=== PATIENT | female | born 2005 | race Caucasian/White ===

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

== ENCOUNTER 2024-11-21 10:34 | Emergency (ER) | payer BC, SELFPAY ==
[2024-11-21 10:38] VITALS: BP 136/96; PULSE 120; RESP 14; TEMP 36.6; O2SAT 95; BMI 18.8
[2024-11-21 11:29] LABS: Add Manual Diff / Slide Review NO; Basophils Absolute Auto 100 /uL (0-100); Basophils Percent Auto 1.3 % (0-2); Eosinophils Absolute Auto 0 /uL (0-450); Eosinophils Percent Auto 0.2 % (2-4); Hematocrit 46.8 % (36-46); Hemoglobin 16.2 g/dL (12.0-16.0); Lymphocytes Absolute Auto 2300 /uL (1100-4500); Lymphocytes Percent Auto 27.5 % (25-40); Mean Corpuscular HGB Conc 34.7 % (30-36); Mean Corpuscular Hemoglobin 30.9 PG (26-34); Monocytes Absolute Auto 600 /uL (0-900); Monocytes Percent Auto 7.4 % (3-14); Neutrophils Absolute Auto 5300 /uL (1500-7000); Neutrophils Percent Auto 63.6 % (50-75); Platelet Count 356 X10^3/uL (150-400); Red Blood Cell Count 5.26 X10^6/uL (4.0-5.2); Red Cell Distribution Width 12.1 % (11.6-14.8); White Blood Cell Count 8.3 X10^3/uL (4.5-11.0)
[2024-11-21 11:42] LABS: Acetaminophen < 10 ug/mL (10-30); Alanine Aminotransferase 30 IU/L (<35); Albumin 5.1 g/dL (3.5-5.0); Albumin Globulin Ratio 1.5 (1.0-2.8); Alkaline Phosphatase 53 U/L (38-126); Aspartate Aminotransferase 32 IU/L (14-36); BUN Creatinine Ratio 27.4 (6-22); Bilirubin Total 0.9 mg/dL (0.2-1.3); Blood Urea Nitrogen 17 mg/dL (7-17); Carbon Dioxide 22 mmol/L (22-32); Chloride 104 mmol/L (98-107); Estimated Glomerular Filt Rate > 60 mL/min (>60); Ethanol (ETOH) < 10 mg/dL; Globulin 3.4 g/dL (1.7-4.1); Glucose 144 mg/dL (70-100); HEMOLYSIS < 15 (0-50); Salicylate < 1.0 mg/dL (<20); Sodium 140 mmol/L (137-145); Total Protein 8.5 g/dL (6.3-8.2)
[2024-11-21 11:58] LABS: Free T4, Direct Thyroxine 0.95 ng/dL (0.78-2.19)
[2024-11-21 12:12] LABS: Thyroid Stimulating Hormone 0.868 uIU/mL (0.47-4.68)
[2024-11-21 14:55] LABS: Ur Creatinine Normal (Normal); Ur Specific Gravity Normal (Normal); Urine Amphetamines Negative (Negative); Urine Barbiturates Negative (Negative); Urine Benzodiazepines Negative (Negative); Urine Cocaine Negative (Negative); Urine MDMA Negative (Negative); Urine Methadone Negative (Negative); Urine Methamphetamines Negative (Negative); Urine Opiates Negative (Negative); Urine Oxycodone Negative (Negative); Urine Phencyclidine Negative (Negative); Urine THC Positive (Negative); Urine Tricyclic Antidepressant Negative (Negative); Urine pH Normal (Normal)
--- NOTE | 2024-11-21 15:51 | ED.PSYCH ---
HPI - Psych <Margaux Ribera DO - Last Filed: 12/03/24 18:56> General Chief Complaint: Psychiatric Symptoms Stated Complaint: paranoid, hallucinations Time Seen by Provider: 11/21/24 15:51 Source: patient, RN notes reviewed and old records reviewed Mode of arrival: Ambulatory Limitations: no limitations History of Present Illness HPI Narrative: 19-year-old female with history of mental health disorder was on several medications most recently Lamictal and trazodone this summer weaned off of these on her own. Was following with Nell. Patient has had 1 inpatient stay remotely and had prior episode of suicidal ideation with intentional overdose around age 14 has not had any persistent. Has had some drug use in the past but denies any recent denies any ingestions. Patient does use marijuana denies other recreational drugs denies any regular alcohol, has experimented with mushrooms in the past but nothing recently. Vapes tobacco. Patient has been having sounds like hallucinations, paranoia, told her dad that they hough were flying to slowly earlier being very jumpy has had difficulty finishing activities of daily living. Boyfriend's been making sure she eats but unclear if she was making sure that she takes showers or eats or cleans herself regularly. She has no SI or HI currently. She was accompanied by her father today. 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 He has had some mild symptoms in the past reportedly. Related Data Home Medications Medication Instructions Recorded Confirmed lamotrigine 100 mg tablet 75 mg PO DAILY Bipolar moodiness 09/27/23 trazodone 50 mg tablet 75 mg PO BEDTIME Insomnia 09/27/23 Previous Rx's Medication Instructions Recorded levonorgestrel 0.15 mg-ethinyl 1 tab PO DAILY #84 tabs 07/14/24 estradiol 0.03 mg tablet (Altavera (28)) Allergies Allergy/AdvReac Type Severity Reaction Status Date / Time No Known Drug Allergies Allergy Verified 11/21/24 10:38 Review of Systems <Margaux Ribera DO - Last Filed: 12/03/24 18:56> Review of Systems ROS Unobtainable: All systems reviewed & are unremarkable except as noted in HPI and below Patient History <Margaux Ribera DO - Last Filed: 12/03/24 18:56> Medical History Lethargy Deliberate self-cutting Dysthymia TMJ arthritis Panic disorder [episodic paroxysmal anxiety] Vomiting Suicidal behavior Social History Smoking Status: Former smoker Smoking Status: Former smoker Exam <Margaux Ribera DO - Last Filed: 12/03/24 18:56> Narrative Exam Narrative: GENERAL: Alert and oriented, thin female, patient is withdrawn but answers some questions, very soft spoken, flat affect. HEENT: Head normocephalic, atraumatic, EOMI, pupils reactive, face symmetric, moist mucous membranes NECK: Supple, full range of motion CARDIOVASCULAR: Regular rate and rhythm without murmurs, rubs or gallops. RESPIRATORY: Breath sounds equal bilaterally, no wheezes rales or rhonchi. ABDOMEN: Soft, nontender. Normoactive bowel sounds all 4 quadrants. No guarding or rebound, rigidity, no mass : No CVA tenderness EXTREMITIES: Normal range of motion, no clubbing or edema. Neurovascularly intact NEUROLOGICAL: Cranial nerves II through XII grossly intact. Moving all extremities SKIN: Warm, dry, no petechiae, no rashes or lesions. PSYCH: No suicidal ideation or intent, no homicidal ideation does report hallucinations possibly auditory as well as visual. Initial Vital Signs Initial Vital Signs: Vital Signs Temperature 97.8 F 11/21/24 10:38 Pulse Rate 120 H 11/21/24 10:38 Respiratory Rate 14 11/21/24 10:38 Blood Pressure 136/96 H 11/21/24 10:38 Pulse Oximetry 95 11/21/24 10:38 Oxygen Delivery Method Room Air 11/21/24 10:38 <Aguilar Cardenas MD - Last Filed: 11/22/24 12:40> Initial Vital Signs Initial Vital Signs: Vital Signs Temperature 97.8 F 11/21/24 10:38 Pulse Rate 120 H 11/21/24 10:38 Respiratory Rate 14 11/21/24 10:38 Blood Pressure 136/96 H 11/21/24 10:38 Pulse Oximetry 95 11/21/24 10:38 Oxygen Delivery Method Room Air 11/21/24 10:38 <Trish Colvin DO - Last Filed: 11/22/24 17:18> Initial Vital Signs Initial Vital Signs: Vital Signs Temperature 97.8 F 11/21/24 10:38 Pulse Rate 120 H 11/21/24 10:38 Respiratory Rate 14 11/21/24 10:38 Blood Pressure 136/96 H 11/21/24 10:38 Pulse Oximetry 95 11/21/24 10:38 Oxygen Delivery Method Room Air 11/21/24 10:38 Course <Margaux Ribera DO - Last Filed: 12/03/24 18:56> Orders Ordered: Discontinued Medications Ibuprofen (Ibuprofen 400 Mg Tablet) 800 mg PO NOW ONE Stop: 11/22/24 11:33 Last Admin: 11/22/24 11:50 Dose: 800 mg Documented By: KALEIGH Olanzapine (Olanzapine Odt 10 Mg Tab) 10 mg PO NOW ONE Stop: 11/21/24 18:36 Last Admin: 11/21/24 19:23 Dose: 10 mg Documented By: FRANCISCO Vital Signs Vital signs: Vital Signs - 8 hr 11/22/24 12:14 11/22/24 12:16 Pulse Rate 107 H Blood Pressure 111/74 Pulse Oximetry 98 Oxygen Delivery Method Room Air <Aguilar Cardenas MD - Last Filed: 11/22/24 12:40> Orders Ordered: Discontinued Medications Ibuprofen (Ibuprofen 400 Mg Tablet) 800 mg PO NOW ONE Stop: 11/22/24 11:33 Last Admin: 11/22/24 11:50 Dose: 800 mg Documented By: KALEIGH Olanzapine (Olanzapine Odt 10 Mg Tab) 10 mg PO NOW ONE Stop: 11/21/24 18:36 Last Admin: 11/21/24 19:23 Dose: 10 mg Documented By: FRANCISCO Vital Signs Vital signs: Vital Signs - 8 hr 11/22/24 12:14 11/22/24 12:16 Pulse Rate 107 H Blood Pressure 111/74 Pulse Oximetry 98 Oxygen Delivery Method Room Air <Trish Colvin DO - Last Filed: 11/22/24 17:18> Orders Ordered: Discontinued Medications Ibuprofen (Ibuprofen 400 Mg Tablet) 800 mg PO NOW ONE Stop: 11/22/24 11:33 Last Admin: 11/22/24 11:50 Dose: 800 mg Documented By: KALEIGH Olanzapine (Olanzapine Odt 10 Mg Tab) 10 mg PO NOW ONE Stop: 11/21/24 18:36 Last Admin: 11/21/24 19:23 Dose: 10 mg Documented By: LS Vital Signs Vital signs: Vital Signs - 8 hr 11/22/24 12:14 11/22/24 12:16 Pulse Rate 107 H Blood Pressure 111/74 Pulse Oximetry 98 Oxygen Delivery Method Room Air MDM - Psych <Margaux Ribera, - Last Filed: 12/03/24 18:56> Lab Data 11/21/24 11:14 11/21/24 11:14 Labs: Lab Results 11/21/24 11/21/24 Range/Units 11:14 14:39 WBC 8.3 (4.5-11.0) X10^3/uL RBC 5.26 H (4.0-5.2) X10^6/uL Hgb 16.2 H (12.0-16.0) g/dL Hct 46.8 H (36-46) % MCV 89.0 (80-100) fL MCH 30.9 (26-34) PG MCHC 34.7 (30-36) % RDW 12.1 (11.6-14.8) % Plt Count 356 (150-400) X10^3/uL Neut % (Auto) 63.6 (50-75) % Lymph % (Auto) 27.5 (25-40) % [place] % (Auto) 7.4 (3-14) % Eos % (Auto) 0.2 L (2-4) % Baso % (Auto) 1.3 (0-2) % Neut # (Auto) 5300 (1772-4010) /uL Lymph # (Auto) 2300 (1585-9745) /uL [place] # (Auto) 600 (0-900) /uL Eos # (Auto) 0 (0-450) /uL Baso # (Auto) 100 (0-100) /uL Sodium 140 (137-145) mmol/L Potassium 4.0 (3.4-5.1) mmol/L Chloride 104 (98-107) mmol/L Carbon Dioxide 22 (22-32) mmol/L BUN 17 (7-17) mg/dL Creatinine 0.62 (0.52-1.04) mg/dL Estimated GFR > 60 (>60) mL/min BUN/Creatinine Ratio 27.4 H (6-22) Glucose 144 H (70-100) mg/dL Calcium 10.0 (8.4-10.2) mg/dL Total Bilirubin 0.9 (0.2-1.3) mg/dL AST 32 (14-36) IU/L ALT 30 (<35) IU/L Alkaline Phosphatase 53 (38-126) U/L Total Protein 8.5 H (6.3-8.2) g/dL Albumin 5.1 H (3.5-5.0) g/dL Globulin 3.4 (1.7-4.1) g/dL Albumin/Globulin Ratio 1.5 (1.0-2.8) TSH 0.868 (0.47-4.68) uIU/mL Free T4 0.95 (0.78-2.19) ng/dL Salicylates < 1.0 (<20) mg/dL U Opiates 300ng/mL cut Negative (Negative) Ur Oxycodone Screen Negative (Negative) Urine Methadone Screen Negative (Negative) Acetaminophen < 10 (10-30) ug/mL Ur Barbiturates Screen Negative (Negative) U Tricyclic Antidepress Negative (Negative) Ur Phencyclidine Scrn Negative (Negative) Ur Amphetamines Screen Negative (Negative) U Methamphetamines Scrn Negative (Negative) Ur MDMA Scrn (Ecstasy) Negative (Negative) U Benzodiazepines Scrn Negative (Negative) Urine Cocaine Screen Negative (Negative) U Marijuana (THC) Screen Positive H (Negative) Urine pH Normal (Normal) Urine Specific [place] Normal (Normal) Ethyl Alcohol < 10 ( - 10) mg/dL Ur Creatinine Normal (Normal) Point of Care Testing Test Results Negative Urine Dip Bedside Urine Glucose Negative Bedside Urine Bilirubin + 1 Bedside Urine Ketone - Negative Urine Specific [place] 1.025 Bedside Urine Occult Blood - Negative Bedside Urine pH 6.0 Bedside Urine Protein + 30 Bedside Urine Urobilinogen +/- 1mg Bedside Urine Nitrite - Negative Bedside Urine Leukocytes - Negative Esterase MDM Narrative Medical decision making narrative: 19-year-old female with reported 1 week of hallucinations, paranoia and disorientation no reports of similar in the past from father patient was on lamotrigine but not taking it regularly does have a history of psychedelics and marijuana use denies SI/HI. White count 8.3 hemoglobin is 16.2 platelets of 356. Chemistries show glucose of 144 electrolytes are otherwise appropriate creatinine 0.62, LFTs are normal TSH is 0.868, free T4 is 0.95. Tylenol, salicylate and ETOH were negative. UDS was positive for marijuana. Patient had negative Patient medically cleared. I feel patient would benefit from inpatient stay, discussed with father at bedside, patient may meet criteria for gravely disabled after discussion for psychosis. [facility] meeting with patient and family. Prior records from 02/21/2024 showed trazodone 100 mg q.h.s. lamotrigine 150 mg daily.? Patient has been on risperidone in the past. [facility] [employer]IST but with family we will attempt for voluntary placement at this time. Patient signed out to Dr. Cardenas while working on disposition. <Aguilar Cardenas MD - Last Filed: 11/22/24 12:40> Lab Data Labs: Lab Results 11/21/24 11/21/24 Range/Units 11:14 14:39 WBC 8.3 (4.5-11.0) X10^3/uL RBC 5.26 H (4.0-5.2) X10^6/uL Hgb 16.2 H (12.0-16.0) g/dL Hct 46.8 H (36-46) % MCV 89.0 (80-100) fL MCH 30.9 (26-34) PG MCHC 34.7 (30-36) % RDW 12.1 (11.6-14.8) % Plt Count 356 (150-400) X10^3/uL Neut % (Auto) 63.6 (50-75) % Lymph % (Auto) 27.5 (25-40) % [place] % (Auto) 7.4 (3-14) % Eos % (Auto) 0.2 L (2-4) % Baso % (Auto) 1.3 (0-2) % Neut # (Auto) 5300 (3750-7489) /uL Lymph # (Auto) 2300 (8046-9796) /uL [place] # (Auto) 600 (0-900) /uL Eos # (Auto) 0 (0-450) /uL Baso # (Auto) 100 (0-100) /uL Sodium 140 (137-145) mmol/L Potassium 4.0 (3.4-5.1) mmol/L Chloride 104 (98-107) mmol/L Carbon Dioxide 22 (22-32) mmol/L BUN 17 (7-17) mg/dL Creatinine 0.62 (0.52-1.04) mg/dL Estimated GFR > 60 (>60) mL/min BUN/Creatinine Ratio 27.4 H (6-22) Glucose 144 H (70-100) mg/dL Calcium 10.0 (8.4-10.2) mg/dL Total Bilirubin 0.9 (0.2-1.3) mg/dL AST 32 (14-36) IU/L ALT 30 (<35) IU/L Alkaline Phosphatase 53 (38-126) U/L Total Protein 8.5 H (6.3-8.2) g/dL Albumin 5.1 H (3.5-5.0) g/dL Globulin 3.4 (1.7-4.1) g/dL Albumin/Globulin Ratio 1.5 (1.0-2.8) TSH 0.868 (0.47-4.68) uIU/mL Free T4 0.95 (0.78-2.19) ng/dL Salicylates < 1.0 (<20) mg/dL U Opiates 300ng/mL cut Negative (Negative) Ur Oxycodone Screen Negative (Negative) Urine Methadone Screen Negative (Negative) Acetaminophen < 10 (10-30) ug/mL Ur Barbiturates Screen Negative (Negative) U Tricyclic Antidepress Negative (Negative) Ur Phencyclidine Scrn Negative (Negative) Ur Amphetamines Screen Negative (Negative) U Methamphetamines Scrn Negative (Negative) Ur MDMA Scrn (Ecstasy) Negative (Negative) U Benzodiazepines Scrn Negative (Negative) Urine Cocaine Screen Negative (Negative) U Marijuana (THC) Screen Positive H (Negative) Urine pH Normal (Normal) Urine Specific [place] Normal (Normal) Ethyl Alcohol < 10 ( - 10) mg/dL Ur Creatinine Normal (Normal) Point of Care Testing Test Results Negative Urine Dip Bedside Urine Glucose Negative Bedside Urine Bilirubin + 1 Bedside Urine Ketone - Negative Urine Specific [place] 1.025 Bedside Urine Occult Blood - Negative Bedside Urine pH 6.0 Bedside Urine Protein + 30 Bedside Urine Urobilinogen +/- 1mg Bedside Urine Nitrite - Negative Bedside Urine Leukocytes - Negative Esterase MDM Narrative Medical decision making narrative: 19-year-old female with reported 1 week of hallucinations, paranoia and disorientation no reports of similar in the past from father patient was on lamotrigine but not taking it regularly does have a history of psychedelics and marijuana use denies SI/HI. White count 8.3 hemoglobin is 16.2 platelets of 356. Chemistries show glucose of 144 electrolytes are otherwise appropriate creatinine 0.62, LFTs are normal TSH is 0.868, free T4 is 0.95. Tylenol, salicylate and ETOH were negative. UDS was positive for marijuana. Patient had negative Patient medically cleared. I feel patient would benefit from inpatient stay, discussed with father at bedside, patient may meet criteria for gravely disabled after discussion for psychosis. [facility] [employer]IST meeting with patient and family. Prior records from 02/21/2024 showed trazodone 100 mg q.h.s. lamotrigine 150 mg daily.? Patient has been on risperidone in the past. [facility] SPECIALIST but with family we will attempt for voluntary placement at this time. Patient signed out to Dr. Cardenas while working on disposition. 11/21/24, 1929, Ronald. Sign-out from Dr. Ribera. 19-year-old female with history of prior hypomanic episodes, previously treated with Lamictal and trazodone in the past, lives [facility] with family members, noted to have recent auditory hallucinations off medications, no current or recent SI/HI known. Seems quite with drawn. Screening studies unremarkable. director of consulting services consult pending, possible placement. Assumed care. 2344, possible placement [facility] tomorrow, instructions to call back tomorrow morning for possible bed placement 11/22/24, 0700, possible psych placement [facility], [facility] to update later this morning, signed out to Dr Colvin. 1000 Dr. Colvin-patient signed out to me by Dr. Cardenas I have seen evaluated patient myself. Family at bedside. Patient really not able to respond but has been complaining of some back pain. She was accepted to [facility]. Awaiting transfer <Trish Colvin DO - Last Filed: 11/22/24 17:18> Lab Data Labs: Lab Results 11/21/24 11/21/24 Range/Units 11:14 14:39 WBC 8.3 (4.5-11.0) X10^3/uL RBC 5.26 H (4.0-5.2) X10^6/uL Hgb 16.2 H (12.0-16.0) g/dL Hct 46.8 H (36-46) % MCV 89.0 (80-100) fL MCH 30.9 (26-34) PG MCHC 34.7 (30-36) % RDW 12.1 (11.6-14.8) % Plt Count 356 (150-400) X10^3/uL Neut % (Auto) 63.6 (50-75) % Lymph % (Auto) 27.5 (25-40) % [place] % (Auto) 7.4 (3-14) % Eos % (Auto) 0.2 L (2-4) % Baso % (Auto) 1.3 (0-2) % Neut # (Auto) 5300 (0370-0072) /uL Lymph # (Auto) 2300 (3368-8953) /uL [place] # (Auto) 600 (0-900) /uL Eos # (Auto) 0 (0-450) /uL Baso # (Auto) 100 (0-100) /uL Sodium 140 (137-145) mmol/L Potassium 4.0 (3.4-5.1) mmol/L Chloride 104 (98-107) mmol/L Carbon Dioxide 22 (22-32) mmol/L BUN 17 (7-17) mg/dL Creatinine 0.62 (0.52-1.04) mg/dL Estimated GFR > 60 (>60) mL/min BUN/Creatinine Ratio 27.4 H (6-22) Glucose 144 H (70-100) mg/dL Calcium 10.0 (8.4-10.2) mg/dL Total Bilirubin 0.9 (0.2-1.3) mg/dL AST 32 (14-36) IU/L ALT 30 (<35) IU/L Alkaline Phosphatase 53 (38-126) U/L Total Protein 8.5 H (6.3-8.2) g/dL Albumin 5.1 H (3.5-5.0) g/dL Globulin 3.4 (1.7-4.1) g/dL Albumin/Globulin Ratio 1.5 (1.0-2.8) TSH 0.868 (0.47-4.68) uIU/mL Free T4 0.95 (0.78-2.19) ng/dL Salicylates < 1.0 (<20) mg/dL U Opiates 300ng/mL cut Negative (Negative) Ur Oxycodone Screen Negative (Negative) Urine Methadone Screen Negative (Negative) Acetaminophen < 10 (10-30) ug/mL Ur Barbiturates Screen Negative (Negative) U Tricyclic Antidepress Negative (Negative) Ur Phencyclidine Scrn Negative (Negative) Ur Amphetamines Screen Negative (Negative) U Methamphetamines Scrn Negative (Negative) Ur MDMA Scrn (Ecstasy) Negative (Negative) U Benzodiazepines Scrn Negative (Negative) Urine Cocaine Screen Negative (Negative) U Marijuana (THC) Screen Positive H (Negative) Urine pH Normal (Normal) Urine Specific [place] Normal (Normal) Ethyl Alcohol < 10 ( - 10) mg/dL Ur Creatinine Normal (Normal) Point of Care Testing Test Results Negative Urine Dip Bedside Urine Glucose Negative Bedside Urine Bilirubin + 1 Bedside Urine Ketone - Negative Urine Specific [place] 1.025 Bedside Urine Occult Blood - Negative Bedside Urine pH 6.0 Bedside Urine Protein + 30 Bedside Urine Urobilinogen +/- 1mg Bedside Urine Nitrite - Negative Bedside Urine Leukocytes - Negative Esterase MDM Narrative Medical decision making narrative: 19-year-old female with reported 1 week of hallucinations, paranoia and disorientation no reports of similar in the past from father patient was on lamotrigine but not taking it regularly does have a history of psychedelics and marijuana use denies SI/HI. White count 8.3 hemoglobin is 16.2 platelets of 356. Chemistries show glucose of 144 electrolytes are otherwise appropriate creatinine 0.62, LFTs are normal TSH is 0.868, free T4 is 0.95. Tylenol, salicylate and ETOH were negative. UDS was positive for marijuana. Patient had negative Patient medically cleared. I feel patient would benefit from inpatient stay, discussed with father at bedside, patient may meet criteria for gravely disabled after discussion for psychosis. GRANT SPECIALIST meeting with patient and family. Prior records from 02/21/2024 showed trazodone 100 mg q.h.s. lamotrigine 150 mg daily.? Patient has been on risperidone in the past. [facility] SPECIALIST but with family we will attempt for voluntary placement at this time. Patient signed out to Dr. Cardenas while working on disposition. 11/21/241929, Ronald. Sign-out from Dr. Ribera. 19-year-old female with history of prior hypomanic episodes, previously treated with Lamictal and trazodone in the past, lives [facility] with family members, noted to have recent auditory hallucinations off medications, no current or recent SI/HI known. Seems quite with drawn. Screening studies unremarkable. director of consulting services consult pending, possible placement. Assumed care. 2344, possible placement [facility] tomorrow, instructions to call back tomorrow morning for possible bed placement 0700, possible psych placement [facility], [facility] to update later this morning, signed out to Dr Vinicius Colvin-patient signed out to me by Dr. Cardenas I have seen evaluated patient myself. Family at bedside. Patient really not able to respond but has been complaining of some back pain. She was accepted to [facility]. Awaiting transfer Discharge Plan Departure Patient Disposition: Xfer Psychiatric Hosp Clinical Impression: Psychosis Prescriptions: No Action levonorgestrel-ethinyl estrad [Altavera (28)] 0.15-0.03 mg tablet 1 tab PO DAILY Qty: 84 3RF lamotrigine 100 mg tablet 75 mg PO DAILY Rx Instructions: Take 3 tabs daily for bipolar moodswings trazodone 50 mg tablet 75 mg PO BEDTIME Referrals: MariaG Brennan PA-C [Primary Care Provider] -
--- NOTE | 2024-11-21 17:36 | CM.SWNOTE ---
ED GRANULATOR Assessment Note: GRANULATOR - [place] Assessment GRANULATOR/[place] Assessment Time Spent with Patient Start date 11/21/24 Visit Start Time 16:30 End date 11/21/24 Visit End Time 17:00 Total time Care Management spent on 30 minutes patient visit-in minutes Mental Health Screening Include Onset, Duration, Intensity Presenting Problem Patient presented to the ED for hallucinations, paranoia and anxiety. Patient father explains patient has been noted to be endorsing paranoia for the past two weeks (I think my coworkers think I'm a bad person) and delusions as recent as today (The birds are flying really slowly. The victor are not real.) Patient is supposed to be taking lamotrigine and hydroxyzine but is reported to not take them consistently, unclear last dose. Precipitating Event(s) Per family, patient has been labile and fragile with mood. Patient exhibiting a poverty of speech and mild confusion. Patient Strengths Patient is supported by her boyfriend, whom she lives with . Parents and sister live nearby patient on [facility] . Patient was previously independent and alert and oriented before symptoms of paranoia and anxiety. Current Behavioral Health Provider(s) No current MH provider, last Include Facility, Provider, Ph. # seen at [facility] by RINA Whitten in 02/2024. Psych. Hx Mental Health and Chemical Patient has a previous dx of Dependency bipolar disorder, dysthymia, panic disorder, ADHD. Patient reports previous use of psychedelics (unclear what type) and THC; Utox positive for THC. Family Hx of Behavioral Abuse None reported. Psychiatric Hospitalizations (date(s)/ Patient has a hx of [place] location) [facility] admission in 2019 after a suicide attempt via overdose. Psychosocial information & Support Patient is a 19yo female, Systems resident of [facility], who lives with her boyfriend. Her family lives on [facility] as well. School/Work Patient works at [employer] on [facility]. Legal Concerns Legal Matters - Outstanding Issues None reported. Mental Status Orientation (Person/Place/Time) Aox3 Stated Mood anxious Affect (Congruent with Mood?) Tearful, labile, congruent with mood Thought Content - Specify/Describe Patient has been endorsing Obsessions, Delusions, Hallucinations delusion/paranoia that people are mad at her or think she is a bad person for about two weeks. Patient is noted during assessment to be easily startled by noises outside of the room to include doors closing or opening; pt scans the room constantly. Thought Processes (Jcxkpoe-Brjyngre-Iovq Incoherent, thought blocking Ksnusrya-Frvieimn-Sydkyowykr- Fczuraiugbgoyz-Zismawp-Ntdqeapvvakq- Thought Blocking) Speech (Pdalsr-Agpg-Yhwqxqa-Rapid-Soft- Soft, pressured, nonsensical Loud-Pressured) at times. Motor (Uhyrvw-Ongpwgmye-Vosf-Other) Normal Insight (Gdmj-Elmf-Fhic/Limited) Poor/limited Judgement (Vrtr-Ygxe-Hqqn/Limited) Fair/limited Impulse Control (Adequate-Impaired) Adequate Memory (Gajomvtlf-Nuqqfz-Hbtdcf, Recent Impaired-Intact) Concentration (Intact-Impaired) Intact Attention (Intact-Impaired) Intact Behavior (Appropriate-Inappropriate) Inappropriate Additional Comment Patient is calm, cooperative during assessment to the best of her abilities with current state. Risk Assessment Suicidal Ideation (Plan) No Homicidal Ideation (Plan) No Comment Patient declines current SI/HI . Patient has had a previous suicide attempt in 2019 via overdose. Intervention Intervention Reviewed chart and discussed with ED Provider pt's medical status and discharge needs. ED GRANULATOR meets with patient and pt's father, who has been primary historian for patient as she is exhibiting poverty of speech. Patient endorses feeling anxious and experiencing hallucinations/ delusions. ED GRANULATOR and patient discuss goals of care. Patient explains they are agreeable to receive inpatient behavioral health hospitalization at this time. Patient family supportive of this plan and hopeful for the least restrictive method for intervention. At this time, it is the opinion of this GRANULATOR that patient would benefit from inpatient psychiatric hospitalization for crisis stabilization, medication management. GRANULATOR informs ED provider, Dr. Ribera, who indicates agreement. GRANULATOR informs SANDRA Randall. Plan RA Plan Once patient is medically clear, ED staff will attempt to find inpatient placement for patient NANCY Galvin
[2024-11-21 17:48] VITALS: BP 126/87
[2024-11-21 17:49] VITALS: PULSE 98; RESP 18; TEMP 36.4; O2SAT 98
--- NOTE | 2024-11-21 19:08 | CM.SWNOTE ---
ED BORDER POLICE Note: ED BORDER POLICE initiated bed search for inpatient BH treatment. Pt and family stated preference for hospital setting, requested no referrals to be sent to [facility]. BORDER POLICE calls [facility], it was reported that they are at capacity today. BORDER POLICE calls [facility], it was reported that there is 1 acute and 1 subacute female beds available. BORDER POLICE sent packet for review. [facility] requesting to do a phone screening with pt, pt declined and confirmed preference for [facility]. BORDER POLICE calls [facility], it was reported that there might be rooms available. BORDER POLICE sent packet for review. It is reported by [employer], [place], that pt would be a good candidate for their program. It is also reported that a bed might not be available until noon on 11/22. Game Producer did not want to give official acceptance until bed available, requested this BORDER POLICE call back in the morning. Pt verbalized preference for this plan. BORDER POLICE had pt sign Voluntary Admission Agreement for [facility], sent via fax and hard copy placed in chart. Plan: Pending acceptance at inpatient facility for BH treatment. ED staff to follow up in the morning of 11/22 if accepted for a tentative noon transfer. NANCY Galvin
[2024-11-21] MEDS: OLANZapine ODT 10 MG TAB PO (19:23)
--- NOTE | 2024-11-21 21:30 | PC.NURSE ---
Pt resting quietly with eyes closed, resps even and not labored. No distress noted at this time. Father remains at bedside at this time. Mother has been in to visit then left. Currently waiting on boyfriend to stay with patient through the night.
--- NOTE | 2024-11-21 23:30 | PC.NURSE ---
No change in patient condition or status. Pt resting quietly with eyes closed, resps even and not labored. No distress noted at this time. Boyfriend currently resting at bedside.
--- NOTE | 2024-11-22 01:30 | PC.NURSE ---
No change in patient condition or status. Pt resting quietly with eyes closed, resps even and not labored. No distress noted at this time. Pts boyfriend remains at bedside.
--- NOTE | 2024-11-22 03:30 | PC.NURSE ---
No change in patient condition or status. Pt resting quietly with eyes closed, resps even not labored. No distress noted at this time. Pts boyfriend remains at bedside.
--- NOTE | 2024-11-22 06:13 | PC.NURSE ---
No change in patient condition or status. Pt resting quietly with eyes closed, resps even and not labored. No distress noted at this time. Boyfriend remains at bedside and shows thumbs up when RN enters room.
--- NOTE | 2024-11-22 10:22 | CM.SWNOTE ---
ED INSPECTOR HANDBAG FRAMES Note: Reviewed chart and discussed with multidisciplinary team pt's medical status and initial discharge needs. Per ED RN, pt has been accepted by [facility] with an arrival after 1400. ED staff coordinated with [facility] for a BLS transport at 1230. INSPECTOR HANDBAG FRAMES re-entered room, present in the room with patient is pt's father and boyfriend. Pt states she was able to get more sleep last night and is still agreeable with voluntary placement. Pt and family notified about acceptance at [facility] and transport time. Plan: Pt to discharge to [facility] via [facility] at 1230 to arrive at approximately 1400. ED staff following for coordination of discharge. NANCY Galvin
[2024-11-22] MEDS: IBUPROFEN 400 MG TABLET 800 MG PO (11:50)
[2024-11-22 12:14] VITALS: BP 111/74
[2024-11-22 12:16] VITALS: PULSE 107; O2SAT 98
== END 2024-11-22 12:50 ==
PROVIDERS: Emergency Medicine; Emergency Provider Emergency Medicine; PCP Physician Assistant
DX: F29 Unspecified psychosis not due to a substance or known physiological condition (principal); F22 Delusional disorders
CPT/HCPCS: 36415; 80053; 80305; 80320; 80329; 81003; 81025; 84439; 84443; 85025; 99284; G0480